=== PATIENT | male | born 1985 | race Caucasian/White ===

== ENCOUNTER 2016-11-13 11:39 | Outpatient (CLI) | payer OTHER ==
[2016-11-13 11:58] LABS: BASOPHILS % 0.4 (0.0-1.5); EOSINOPHILS % 0.9 % (0.0-6.8); MEAN CORPUSCULAR HEMOGLOBIN 31.3 pg (28.0-34.0); MONOCYTES % 5.5 % (0.0-11.0); NEUTROPHILS # 7.4 # k/uL (1.4-7.7)
[2016-11-13 12:33] LABS: eGFR (African) > 60; eGFR (Non-African) > 60
== END 2016-11-13 11:40 ==
LOC: LAB 11:39
PROVIDERS: ATTEND Family Medicine
DX: R50.9 Fever, unspecified (principal)
CPT/HCPCS: 36415; 80053; 85025

== ENCOUNTER 2016-11-16 08:12 | Outpatient (CLI) | payer OTHER ==
--- NOTE | 2016-11-16 15:04 | Diagnostic Imaging Report ---
MASON CRUZ [facility] [id number] On License Of [facility] [address] [address] Report Submission Date: November 16, 2016 11:09:08 AM CDT Patient Study Name: MALIK SWIFT Date: November 16, 2016 8:16:59 AM CDT Modality Type: CR Gender: M Description: CHEST : 81 Institution: [facility] Physician: MASON CRUZ Chest - two views Clinical history: Cough and fever since 11/11/2016. Findings: Examination of the chest in PA and lateral views demonstrates soft tissue density in the right paratracheal region. This may represent superimposed parenchymal shadows, but comparison with prior films or follow-up CT is recommended for confirmation. The lungs are otherwise clear. Cardiac silhouette is within normal limits. Findings: 1. Prominence of the right paratracheal soft tissues. Recommend comparison with prior studies or follow-up CT. Electronically signed on November 16, 2016 11:09:08 AM CDT by: Andrew GARCIA
== END 2016-11-16 08:13 ==
LOC: RAD 08:12
PROVIDERS: ATTEND Family Medicine
DX: R50.9 Fever, unspecified (principal)
CPT/HCPCS: 71020

== ENCOUNTER 2019-01-06 10:56 | Day surgery (SDC) | payer OTHER ==
[~2019-01-06 10:56] MED LIST: LACTATED RINGERS 1,000 ML IV.SOLN IV ONE; LIDOCAINE HCL 1% PF 300MG/30ML VIAL ONE; LIDOCAINE HCL 2% PF 100MG/5ML VIAL IJ ONE; MIDAZOLAM HCL 2 MG/2 ML VIAL ONE; PROPOFOL 200 MG/20 ML VIAL IV ONE; ceFAZolin SODIUM 1 GM VIAL ONE; fentaNYL CITRATE/PF 100 MCG/2 ML INJ. ONE
--- NOTE | 2019-01-19 15:01 | Operative Note ---
PROCEDURE DATE: 01/06/2019 PREOPERATIVE DIAGNOSIS: Soft tissue mass, ulnar aspect of right index finger, proximal phalangeal region. POSTOPERATIVE DIAGNOSIS: Soft tissue mass, ulnar aspect of right index finger, proximal phalangeal region. PROCEDURES PERFORMED: Marginal excision of soft tissue mass, right index finger, ulnar aspect. SURGEON: Jimmie Meade M.D. ANESTHESIA: Monitored anesthesia control with regional block. FLUIDS RECEIVED: Recorded as per Anesthesia Record. ESTIMATED BLOOD LOSS: 0 mL. COMPLICATIONS: No complications to surgery or to the anesthesia. TOURNIQUET TIME: Approximately 13 minutes. DESCRIPTION OF PROCEDURE: The patient was brought to the operating room, placed supine on the operating table with right arm on hand board. Sterile prep and drape was carried out, the patient having received antibiotic intravenously preoperatively. Site verification completed, the extremity was exsanguinated, and a forearm tourniquet, placed prior to the prep and drape, was insufflated to a pressure of 250 mmHg after exsanguination of the extremity using Esmarch wrap. I then performed metacarpal block, and this was utilized for the procedure in conjunction with intravenous sedation/anesthesia with assistance of the nurse telecommunications repairer. Excellent metacarpal block obtained for the neural structures involving the index finger, attention turned to the palpable mass deep in the ulnar aspect of the index finger, but not on bone as the mass was mobile. Longitudinal incision, approximately 2-1/2 cm in length, was made overlying the mass, dorsoulnar. The incision was then carefully dissected, and the underlying mass was readily identifiable. It was well defined, somewhat cystic in appearance, and it was isolated using small dissecting scissors, after which it was then removed and placed in a formalin-containing specimen container. This was sent for routine gross and microscopic histologic exam. The wound was gently irrigated using a bulb syringe, and closure was thereafter carried out using running 4-0 Monocryl stitch, pull-out. Sterile soft dressing was thereafter applied after using one-eighth inch Steri-Strips, Mastisol along the margins of the incision to further secure the closure. Sterile soft dressing placed, bulky, the tourniquet was released and good capillary refill was noted in the fingertips and thumb. The patient was transferred to the recovery area in satisfactory condition. JIMMIE MEADE M.D. DATE TIME JEFE/cjasher (Please copy [facility] provider when applicable) Job #[id number] [facility]
== END 2019-01-06 14:00 | disposition home or self-care (01) ==
LOC: OPSURG 10:56
PROVIDERS: ATTEND Orthopaedic Surgery
DX: D36.12 Benign neoplasm of peripheral nerves and autonomic nervous system, upper limb, including shoulder (principal)
CPT/HCPCS: 64790; 88305; J0690; J2001; J2250; J2704; J3010; J7120